=== PATIENT | male | born 1950 | race Caucasian/White ===

== ENCOUNTER → 2019-02-27 01:25 | Emergency (ER) | payer BC ==
[~2019-02-27 01:25] MED LIST: HYDROmorphone INJ1* 1 MG/ML SYRINGE IV SLOW PU ONE; Ketorolac INJ* 30 MG/ML 1 ML VIAL IV PUSH ONE; Metoclopramide IV* 5 MG/ML 2 ML VIAL IV SLOW PU ONE; NS 0.9% 1000 ML** 1,000 ML IV ONE
--- NOTE | 2019-02-27 01:57 | ED ---
GI/ HPI - HPI Summary HPI Summary: A 68 y/o male presents to [facility] with a chief complaint of right sided flank pain for the last 1.5 hours. He has a Hx of kidney stones and claims that this is similar pain. He rates his pain as a 9/10 in severity. His pain does not radiate to his testicles. He reports some nausea but denies vomiting or having the urgency to urinate. He claims that he last was able to urinate at 20:00 yesterday. He states that he has been drinking enough. - History of Current Complaint Chief Complaint: EDFlankPain Time Seen by Provider: 02/27/19 01:46 Stated Complaint: POSS KIDNEY STONE PER PT Hx Obtained From: Patient Onset/Duration: Started Hours Ago, Still Present Timing: Constant, Lasting Hours Severity: Severe Current Severity: Moderate Pain Intensity: 9 - out of 10 Location of Pain: Flank - right Associated Signs and Symptoms: Positive: Nausea. Negative: Vomiting, Fever, Other: - urgency, testicular pain - Allergy/Home Medications Allergies/Adverse Reactions: Allergies Allergy/AdvReac Type Severity Reaction Status Date / Time No Known Allergies Allergy Verified 01/13/14 08:59 Home Medications: Home Medications NK [No Home Medications Reported] 02/27/19 [History Confirmed 02/27/19] PMH/Surg Hx/FS Hx/Imm Hx Endocrine/Hematology History: Denies: Hx Diabetes, Hx Thyroid Disease Cardiovascular History: Reports: Hx Hypertension Respiratory History: Denies: Hx Asthma, Hx Chronic Obstructive Pulmonary Disease (COPD) GI History: Denies: Hx Ulcer - Surgical History Surgery Procedure, Year, and Place: app Infectious Disease History: No Infectious Disease History: Denies: Hx Hepatitis, Hx Human Immunodeficiency Virus (HIV), Traveled Outside the in Last 30 Days - Family History Known Family History: Negative: Blood Disorder - Social History Alcohol Use: None Substance Use Type: Reports: None Smoking Status (MU): Never Smoked Tobacco Review of Systems Negative: Fever Positive: Nausea. Negative: Vomiting Positive: flank pain. Negative: urgency All Other Systems Reviewed And Are Negative: Yes Physical Exam - Summary Physical Exam Summary: VITAL SIGNS: Reviewed. GENERAL: Patient is a well-developed and nourished MALE who is lying comfortable in the stretcher. Patient is not in any acute respiratory distress. HEAD AND FACE: No signs of trauma. No ecchymosis, hematomas or skull depressions. No sinus tenderness. EYES: PERRLA, EOMI x 2, No injected conjunctiva, no nystagmus. EARS: Hearing grossly intact. Ear canals and tympanic membranes are within normal limits. MOUTH: Oropharynx within normal limits. NECK: Supple, trachea is midline, no adenopathy, no JVD, no carotid bruit, no c- spine tenderness, neck with full ROM CHEST: Symmetric, no tenderness at palpation LUNGS: Clear to auscultation bilaterally. No wheezing or crackles. CVS: Regular rate and rhythm, S1 and S2 present, no murmurs or gallops appreciated. ABDOMEN: Soft, non-tender. No signs of distention. No rebound no guarding, and no masses palpated. Bowel sounds are normal. EXTREMITIES: FROM in all major joints, no edema, no cyanosis or clubbing. NEURO: Alert and oriented x 3. No acute neurological deficits. Speech is normal and follows commands. SKIN: Dry and warm Triage Information Reviewed: Yes Vital Signs On Initial Exam: Initial Vitals Temp Pulse Resp BP Pulse Ox 97.3 F 71 20 207/96 97 02/27/19 01:26 02/27/19 01:26 02/27/19 01:26 02/27/19 01:26 02/27/19 01:26 Vital Signs Reviewed: Yes Diagnostics - Vital Signs Vital Signs Temp Pulse Resp BP Pulse Ox 02/27/19 01:26 97.3 F 71 20 207/96 97 - Laboratory Result Diagrams: 02/27/19 02:11 02/27/19 02:11 Lab Statement: Any lab studies that have been ordered have been reviewed, and results considered in the medical decision making process. - CT abdomen/pelvis CT Interpretation Completed By: Radiologist Summary of CT Findings: There is a 3 mm calculus noted within the bladder in the vicinity of the right. UVJ with associated prominence of the right renal collecting system. Findings. are suggestive of recently past renal stone. ED physician has reviewed this imaging report. Re-Evaluation - Re-Evaluation First Eval Re-Evaluation Time: 02:23 Change: Unchanged GIGU Course/Dx - Course Course Of Treatment: A 68 y/o male presents to [facility] with a chief complaint of right sided flank pain for the last 1.5 hours. He has a Hx of kidney stones and claims that this is similar pain. He rates his pain as a 9/10 in severity. His pain does not radiate to his testicles. He reports some nausea but denies vomiting or having the urgency to urinate. The physical exam was unremarkable. In the ED course the patient was given Sodium Chloride IV, Dilaudid IV, Toradol IV and Reglan IV. CT abdomen/pelvis impression: There is a 3 mm calculus noted within the bladder in the vicinity of the right. UVJ with associated prominence of the right renal collecting system. Findings. are suggestive of recently past renal stone. The patient will be discharged home and follow up with his PCP. The patient is agreeable with this plan. - Diagnoses Provider Diagnoses: Renal colic Discharge - Sign-Out/Discharge Documenting (check all that apply): Patient Departure - DC Patient Received Moderate/Deep Sedation with Procedure: No - Discharge Plan Condition: Stable Disposition: HOME Patient Education Materials: Renal Colic (ED) Forms: *Work Release Referrals: Cash Resendiz MD [Primary Care Provider] - (2-3 days) Additional Instructions: PLEASE RETURN TO THE ED IMMEDIATELY FOR WORSENING OR CONCERNING SYMPTOMS. - Billing Disposition and Condition Condition: STABLE Disposition: Home - Attestation Statements Document Initiated by [employer]: Yes Documenting Scribe: Jayro Patiño Provider For Whom Nelly is Documenting (Include Credential): Sadia Rice MD Scribe Attestation: Jayro Mark scribed for Sadia Rice MD on 02/27/19 at 0641. Scribe Documentation Reviewed: Yes Provider Attestation: The documentation as recorded by the Jayro sahni accurately reflects the service I personally performed and the decisions made by Sandro walker MD Status of Scribe Document: Viewed
[2019-02-27 02:17] LABS: ABS Eosinophils 0.2 10^3/ul (0-0.6); ABS Lymphocytes 1.7 10^3/ul (1.0-4.8); ABS Monocytes 0.4 10^3/ul (0-0.8); ABS Neutrophils 2.4 10^3/ul (1.5-7.7); Eosinophil % 3.6 %; Hematocrit 44 % (42-52); Hemoglobin 15.1 g/dL (14.0-18.0); Lymphocyte % 35.3 %; Mean Corpuscular HGB Conc 35 g/dL (31-36); Mean Corpuscular Hemoglobin 32 pg (27-31); Mean Corpuscular Volume 94 fL (80-94); Mean Platelet Volume 8.2 fL (7.4-10.4); Nucleated Red Blood Cells % 0.1; Platelet Count 248 10^3/uL (150-450); Red Blood Count 4.65 10^6 /uL (4.18-5.48); Red Cell Distribution Width 13 % (10.5-15); White Blood Count 4.7 10^3/uL (3.5-10.8)
[2019-02-27 02:39] LABS: Albumin 4.3 g/dL (3.2-5.2); Albumin/Globulin Ratio 1.6 (1-3); BUN/Creatinine Ratio 16.7 (8-20); Calcium 9.4 mg/dL (8.6-10.3); EGFR African American 82.8 (>60); EGFR Non-African American 68.4 (>60); Globulin 2.7 g/dL (2-4); Total Bilirubin 0.5 mg/dL (0.2-1.0)
[2019-02-27 04:40] LABS: Urine Appearance Clear; Urine Bacteria Absent (Absent); Urine Bilirubin Negative (Negative); Urine Blood 3+ (Negative); Urine Color Yellow; Urine Glucose Negative (Negative); Urine Ketones Negative (Negative); Urine Nitrite Negative (Negative); Urine Protein Negative (Negative); Urine Red Blood Cell 3+(>10/hpf) (Absent); Urine Specific Gravity 1.016 (1.010-1.030); Urine Urobilinogen Negative (Negative); Urine White Blood Cell Absent (Absent)
[2019-02-27 04:48] VITALS: BP 152/87
== END | disposition home or self-care (01) ==
LOC: ED 01:25
DX: N23 Unspecified renal colic (principal); N21.0 Calculus in bladder; I10 Essential (primary) hypertension
CPT/HCPCS: 36415; 74176; 80053; 81003; 81015; 85025; 96361; 96374; 96375; 99283; J1170; J1885; J2765